=== PATIENT | male | born 1995 | race Caucasian/White ===

== ENCOUNTER 2020-08-05 14:54 | Emergency (ER) | payer SELFPAY ==
[~2020-08-05] VITALS: Ht 175.3 cm; Wt 67.6 kg
[2020-08-05 15:03] VITALS: BP 139/83
[2020-08-05] MEDS ORDERED: HYDR-3686 PO (15:17)
[2020-08-05] MEDS ORDERED: PRED20TA PO (15:17)
[2020-08-05] MEDS ORDERED: BETA15CR4 TOP (15:17)
== END 2020-08-05 15:45 | disposition home or self-care (01) ==
LOC: ER 14:55
DX: L23.7 Allergic contact dermatitis due to plants, except food (principal)
CPT/HCPCS: 99283

== ENCOUNTER 2024-06-02 22:44 | Emergency (ER) | payer OTHER ==
[~2024-06-02] VITALS: Ht 177.8 cm; Wt 69.1 kg
[~2024-06-02 22:44] MED LIST: BETA15CR4 TOP
[2024-06-02] MEDS ORDERED: AMOX-117 PO (22:59)
[2024-06-02] MEDS ORDERED: ACET-3068 PO (22:59)
[2024-06-02] MEDS: acetaminophen w/codeine (30MG) #3 tablet PO ONE (23:41)
[2024-06-02 23:42] VITALS: BP 122/80; PULSE 70; RESP 18; TEMP 98; O2SAT 99
== END 2024-06-02 23:44 | disposition home or self-care (01) ==
LOC: ER 22:45
DX: K08.89 Other specified disorders of teeth and supporting structures (principal)
CPT/HCPCS: 99283